=== PATIENT | female | born 1975 | race Caucasian/White ===

== ENCOUNTER 2016-05-01 23:11 | Emergency (ER) | payer OTHER ==
[2016-05-01 23:28] VITALS: RESP 16
[2016-05-01] MEDS ORDERED: DIPH,PERTUS(ACELL)TETVAC-LF 0.5 ML VIAL IM ONE (23:46)
--- NOTE | 2016-05-01 23:49 | ED ---
Wound/Laceration HPI - General Chief Complaint: Wound/Laceration Stated Complaint: left hand laceration Time Seen by Provider: 05/01/16 23:33 Source: patient, RN notes reviewed Mode of arrival: ambulatory Limitations: no limitations - History of Present Illness Initial Comments: Patient is a 41-year-old female with a chief complaint of laceration to her left thumb. Patient reports that she cut with the parent a fluttering to repair her eye pad. Patient reports that the knife Slipped and cut her thumb. She denies any other injury. She states she has full range of motion of the thumb. She denies knowing the status of her tetanus vaccination. She would like to have a updated today. Patient reports no other injuries. She denies any peripheral paresthesias. - Related Data Home Medications Medication Instructions Recorded Confirmed Albuterol Sulfate [Proair Hfa] 1 - 2 puff INHALATION RT-Q6H PRN 02/12/16 DULoxetine HCL [Cymbalta] 60 mg PO DAILY 02/12/16 05/01/16 Allergies Allergy/AdvReac Type Severity Reaction Status Date / Time No Known Allergies Allergy Verified 05/01/16 23:28 Review of Systems ROS Statement: Those systems with pertinent positive or pertinent negative responses have been documented in the HPI. ROS Other: All systems not noted in ROS Statement are negative. Past Medical History Additional Past Medical History / Comment(s): chronic back pain History of Any Multi-Drug Resistant Organisms: None Reported Past Surgical History: No Surgical Hx Reported Past Psychological History: Anxiety, Depression Smoking Status: Current every day smoker Past Alcohol Use History: Occasional Past Drug Use History: None Reported General Exam - General Exam Comments Initial Comments: WEll appearing 41 year old female, no distress. Limitations: no limitations General appearance: alert, in no apparent distress Head exam: Present: atraumatic, normocephalic, normal inspection Eye exam: Present: normal appearance, PERRL, EOMI. Absent: scleral icterus, conjunctival injection, periorbital swelling ENT exam: Present: normal exam, mucous membranes moist Neck exam: Present: normal inspection. Absent: tenderness, meningismus, lymphadenopathy Respiratory exam: Present: normal lung sounds bilaterally. Absent: respiratory distress, wheezes, rales, rhonchi, stridor Cardiovascular Exam: Present: regular rate, normal rhythm, normal heart sounds. Absent: systolic murmur, diastolic murmur, rubs, gallop, clicks GI/Abdominal exam: Present: soft, normal bowel sounds. Absent: distended, tenderness, guarding, rebound, rigid Extremities exam: Present: normal inspection, full ROM, normal capillary refill. Absent: tenderness, pedal edema, joint swelling, calf tenderness Left Forearm Wrist exam: Present: normal inspection, full ROM Hand Wrist exam: Present: full ROM. Absent: normal inspection (Patient has a 3 cm laceration over the left thumb.) Neurosensory exam: Present: radial nerve intact, ulnar nerve intact, median nerve intact Vascular: Present: normal capillary refill Back exam: Present: normal inspection Neurological exam: Present: alert, oriented X3, CN II-XII intact Psychiatric exam: Present: normal affect, normal mood Skin exam: Present: warm, dry, intact, normal color. Absent: rash Course Vital Signs 05/01/16 05/02/16 23:26 00:44 Temperature 98.2 F 98 F Pulse Rate 81 77 Respiratory 16 16 Rate Blood Pressure 114/61 129/77 O2 Sat by Pulse 100 98 Oximetry Procedures - Laceration Laceration #1 Site: hand (left thumb) Size (cm): 3 Description: linear Depth: simple, single layer Sedation/Analgesia: fentanyl Anesthesia Technique: local infiltration Amount (mls): 3 Pre-repair: wound explored, irrigated extensively Type of Sutures: nylon Size of Sutures: 6-0 Number of Sutures: 4 Technique: simple, interrupted Patient Tolerated Procedure: well, no complications Medical Decision Making - Medical Decision Making Patient is a 41 year old with laceration over left thumb after cutting it on a knife. She was given Tetanus vaccination. Patient has full range of motion of the thumb and no tendon involvement. Patient wound was cleaned and closed with 4 sutures. Wound was well approximated and a sterile dressing applied. PAtient understands treatment plan and return paramteres. Disposition Clinical Impression: Thumb laceration Disposition: HOME SELF-CARE Condition: Good Instructions: Care For Your Stitches (ED), Laceration (ED) Additional Instructions: Please return to the emergency room in 8-10 days to have sutures removed. Please leave wound covered for the first 24-48 hours and then leave open to air after that time. Please use clean soap and water to clean the suture area to prevent scabbing over the top of your sutures. Please watch for any signs of infection which may include but not limited to increased pain, swelling, redness , fever or chills. Please return to the emergency room if any signs of infection do occur. Please return to the emergency room for any other concerns or complications. Referrals: Peewee Stockton MD [Primary Care Provider] - 1-2 days Time of Disposition: 00:25
[2016-05-02 00:45] VITALS: BP 129/77; PULSE 77; TEMP 98
== END 2016-05-02 00:45 | disposition home or self-care (01) ==
LOC: EC 23:11
DX: S61.012A Laceration without foreign body of left thumb without damage to nail, initial encounter (principal); F41.9 Anxiety disorder, unspecified; F32.9 Major depressive disorder, single episode, unspecified; F17.200 Nicotine dependence, unspecified, uncomplicated; Z79.899 Other long term (current) drug therapy; W26.0XXA Contact with knife, initial encounter
CPT/HCPCS: 12002; 90471; 90715; 99282

== ENCOUNTER 2016-08-27 10:56 | Emergency (ER) | payer OTHER ==
[2016-08-27 11:07] VITALS: TEMP 99.2
[2016-08-27] MEDS ORDERED: SODIUM CHLORIDE 0.9% 1,000 ML IV STA (11:28)
--- NOTE | 2016-08-27 11:43 | ED ---
General Adult HPI - General Chief complaint: OB/Uterine Contractions Stated complaint: female gu, ellyn miscarrage Time Seen by Provider: 08/27/16 11:24 Source: patient, RN notes reviewed Mode of arrival: ambulatory Limitations: no limitations - History of Present Illness Initial comments: Patient 41-year-old female who presents emergency room today with a chief complaint of possible miscarriage. Patient is G5, P2 with 2 previous miscarriages. She does admit that she believes she is approximately 5 weeks by last menstrual cycle. She states she had a positive test at home but has not seen an OB at this time in this . Patient does admit to increased bleeding that started this morning proxy 6 AM. She states it 's a bright red color. She denies any other complaints or symptoms. Admits some lower abdominal cramping. Currently rates it a 4/10. Denies any dizziness or lightheadedness. Patient denies any recent fever, chills, shortness of breath, chest pain, back pain, nausea or vomiting, numbness or tingling, dysuria or hematuria, constipation or diarrhea, headaches or visual changes, or any other complaints. - Related Data Home Medications Medication Instructions Recorded Confirmed DULoxetine HCL [Cymbalta] 60 mg PO HS 02/12/16 08/27/16 Sba-Grag-Uskzs Acid 1 cap PO DAILY 08/27/16 08/27/16 [-U Capsule (formulary)] Allergies Allergy/AdvReac Type Severity Reaction Status Date / Time No Known Allergies Allergy Verified 08/27/16 11:07 Review of Systems ROS Statement: Those systems with pertinent positive or pertinent negative responses have been documented in the HPI. ROS Other: All systems not noted in ROS Statement are negative. Past Medical History Additional Past Medical History / Comment(s): chronic back pain History of Any Multi-Drug Resistant Organisms: None Reported Past Surgical History: No Surgical Hx Reported Past Psychological History: Anxiety, Depression Smoking Status: Current some day smoker Past Alcohol Use History: Occasional Past Drug Use History: None Reported General Exam - General Exam Comments Initial Comments: General: The patient is awake and alert, in no distress, and does not appear acutely ill. Eye: Pupils are equal, round and reactive to light, extra-ocular movements are intact. No nystagmus. There is normal conjunctiva bilaterally. No signs of icterus. Ears, nose, mouth and throat: There are moist mucous membranes and no oral lesions. Neck: The neck is supple, there is no tenderness or JVD. Cardiovascular: There is a regular rate and rhythm. No murmur, rub or gallop is appreciated. Respiratory: Lungs are clear to auscultation, respirations are non-labored, breath sounds are equal. No wheezes, stridor, rales, or rhonchi. Gastrointestinal: Soft, non-distended, non-tender abdomen without masses or organomegaly noted. There is no rebound or guarding present. No CVA tenderness. Bowel sounds are unremarkable. Musculoskeletal: Normal ROM, no tenderness. Strength 5/5. Sensation intact. Pulses equal bilaterally 2+. Neurological: A&O x 3. CN II-XII intact, There are no obvious motor or sensory deficits. Coordination appears grossly intact. Speech is normal. Skin: Skin is warm and dry and no rashes or lesions are noted. Psychiatric: Cooperative, appropriate mood & affect, normal judgment. Limitations: no limitations Course Vital Signs 08/27/16 08/27/16 08/27/16 11:04 12:39 13:32 Temperature 99.2 F Pulse Rate 97 76 65 Respiratory 20 18 18 Rate Blood Pressure 128/77 113/66 110/58 O2 Sat by Pulse 99 97 97 Oximetry Medical Decision Making - Medical Decision Making Patient reexamined at this time shows no signs of distress. Resting comfortably in stretcher. Abdomen soft nontender. Patient's labs been reviewed. Repeat potassium was normal range. Patient's beta hCG 36.4 today. Ultrasound revealing no evidence of IUP at this time. Limit miscarriage was discussed with the patient. Patient is advised follow-up with the RN ACUTE DIALYSIS over the next 2 days. Given a prescription for repeat beta hCG in 2 days. Advised return here to the emergency room if any symptoms increase or worsen or for any other concerns. - Lab Data Result diagrams: 08/27/16 11:56 08/27/16 13:18 Lab Results 08/27/16 08/27/16 08/27/16 Range/Units 11:56 11:56 11:56 WBC 9.6 (3.8-10.6) k/uL RBC 4.43 (3.80-5.40) m/uL Hgb 14.9 (11.4-16.0) gm/dL Hct 41.8 (34.0-46.0) % MCV 94.5 (80.0-100.0) fL MCH 33.6 (25.0-35.0) pg MCHC 35.5 (31.0-37.0) g/dL RDW 12.2 (11.5-15.5) % Plt Count 270 (150-450) k/uL Neutrophils % 71 % Lymphocytes % 19 % Monocytes % 4 % Eosinophils % 3 % Basophils % 1 % Neutrophils # 6.8 (1.3-7.7) k/uL Lymphocytes # 1.8 (1.0-4.8) k/uL Monocytes # 0.4 (0-1.0) k/uL Eosinophils # 0.3 (0-0.7) k/uL Basophils # 0.1 (0-0.2) k/uL Sodium 138 (137-145) mmol/L Potassium 5.8 H (3.5-5.1) mmol/L Chloride 107 (98-107) mmol/L Carbon Dioxide 20 L (22-30) mmol/L Anion Gap 11 mmol/L BUN 9 (7-17) mg/dL Creatinine 0.66 (0.52-1.04) mg/dL Est GFR (MDRD) Af Amer >60 (>60 ml/min/1.73 sqM) Est GFR (MDRD) Non-Af >60 (>60 ml/min/1.73 sqM) Glucose 89 (74-99) mg/dL Calcium 9.0 (8.4-10.2) mg/dL Total Bilirubin 1.2 (0.2-1.3) mg/dL AST 34 (14-36) U/L ALT 19 (9-52) U/L Alkaline Phosphatase 34 L (38-126) U/L Total Protein 7.4 (6.3-8.2) g/dL Albumin 4.4 (3.5-5.0) g/dL HCG, Quant 36.4 mIU/mL Urine Color Yellow Urine Appearance Cloudy H (Clear) Urine pH 8.0 (5.0-8.0) Ur Specific [place] 1.017 (1.001-1.035) Urine Protein Trace H (Negative) Urine Glucose (UA) Negative (Negative) Urine Ketones Negative (Negative) Urine Blood Moderate H (Negative) Urine Nitrite Negative (Negative) Urine Bilirubin Negative (Negative) Urine Urobilinogen <2.0 (<2.0) mg/dL Ur Leukocyte Esterase Moderate H (Negative) Urine RBC >182 H (0-5) /hpf Urine WBC 6 H (0-5) /hpf Ur Squamous Epith Cells 3 (0-4) /hpf Urine Bacteria Rare H (None) /hpf Urine Mucus Rare H (None) /hpf Urine Sperm Rare (None) /hpf 08/27/16 Range/Units 13:18 WBC (3.8-10.6) k/uL RBC (3.80-5.40) m/uL Hgb (11.4-16.0) gm/dL Hct (34.0-46.0) % MCV (80.0-100.0) fL MCH (25.0-35.0) pg MCHC (31.0-37.0) g/dL RDW (11.5-15.5) % Plt Count (150-450) k/uL Neutrophils % % Lymphocytes % % Monocytes % % Eosinophils % % Basophils % % Neutrophils # (1.3-7.7) k/uL Lymphocytes # (1.0-4.8) k/uL Monocytes # (0-1.0) k/uL Eosinophils # (0-0.7) k/uL Basophils # (0-0.2) k/uL Sodium (137-145) mmol/L Potassium 4.1 (3.5-5.1) mmol/L Chloride (98-107) mmol/L Carbon Dioxide (22-30) mmol/L Anion Gap mmol/L BUN (7-17) mg/dL Creatinine (0.52-1.04) mg/dL Est GFR (MDRD) Af Amer (>60 ml/min/1.73 sqM) Est GFR (MDRD) Non-Af (>60 ml/min/1.73 sqM) Glucose (74-99) mg/dL Calcium (8.4-10.2) mg/dL Total Bilirubin (0.2-1.3) mg/dL AST (14-36) U/L ALT (9-52) U/L Alkaline Phosphatase (38-126) U/L Total Protein (6.3-8.2) g/dL Albumin (3.5-5.0) g/dL HCG, Quant mIU/mL Urine Color Urine Appearance (Clear) Urine pH (5.0-8.0) Ur Specific [place] (1.001-1.035) Urine Protein (Negative) Urine Glucose (UA) (Negative) Urine Ketones (Negative) Urine Blood (Negative) Urine Nitrite (Negative) Urine Bilirubin (Negative) Urine Urobilinogen (<2.0) mg/dL Ur Leukocyte Esterase (Negative) Urine RBC (0-5) /hpf Urine WBC (0-5) /hpf Ur Squamous Epith Cells (0-4) /hpf Urine Bacteria (None) /hpf Urine Mucus (None) /hpf Urine Sperm (None) /hpf Disposition Clinical Impression: Threatened Disposition: HOME SELF-CARE Condition: Stable Instructions: Threatened Miscarriage (ED) Additional Instructions: Please follow-up with RN ACUTE DIALYSIS / family doctor in the next 2 days of symptoms have not improved. Please return to emergency room if the symptoms increase or worsen or for any other concerns. Referrals: Peewee Stockton MD [Primary Care Provider] - 1-2 days Time of Disposition: 14:47
[2016-08-27 12:07] LABS: Basophils # (A) 0.1 k/uL (0-0.2); Basophils % (A) 1 %; CH 32.4; CHCM 34.4; Eosinophils # (A) 0.3 k/uL (0-0.7); Eosinophils % (A) 3 %; HCT 41.8 % (34.0-46.0); HDW 2.32; HGB 14.9 gm/dL (11.4-16.0); Luc # (Auto) 0.15; Luc % (Auto) 2; Lymphocytes # (A) 1.8 k/uL (1.0-4.8); Lymphocytes % (A) 19 %; MCH 33.6 pg (25.0-35.0); MCHC 35.5 g/dL (31.0-37.0); MCV 94.5 fL (80.0-100.0); Mean Platelet Volume 6.8; Monocytes # (A) 0.4 k/uL (0-1.0); Monocytes % (A) 4 %; Neutrophils # (A) 6.8 k/uL (1.3-7.7); Neutrophils % (A) 71 %; RBC 4.43 m/uL (3.80-5.40); RDW 12.2 % (11.5-15.5); WBC 9.6 k/uL (3.8-10.6); WBC (Perox) 9.67
[2016-08-27 12:15] LABS: ALT 19 U/L (9-52); AST 34 U/L (14-36); Alkaline Phosphatase 34 U/L (38-126); Anion Gap 11 mmol/L; Blood Urea Nitrogen 9 mg/dL (7-17); Carbon Dioxide 20 mmol/L (22-30); Chloride 107 mmol/L (98-107); Glucose 89 mg/dL (74-99); Non-African American GFR(MDRD) >60 (>60 ml/min/1.73 sqM); Sodium 138 mmol/L (137-145); Total Bilirubin 1.2 mg/dL (0.2-1.3); Total Protein 7.4 g/dL (6.3-8.2)
[2016-08-27 12:16] LABS: Potassium 5.8 mmol/L (3.5-5.1)
[2016-08-27 12:18] LABS: Appearance,Urine Cloudy (Clear); Bacteria,Urine Rare /hpf; Bilirubin,Urine Negative (Negative); Glucose,Urine (UA) Negative (Negative); Ketones,Urine Negative (Negative); Leukocyte Esterase,Urine Moderate (Negative); Mucus,Urine Rare /hpf; Nitrite,Urine Negative (Negative); Particle Count 3921; Protein,Urine Trace (Negative); RBC,Urine >182 /hpf (0-5); Specific Gravity,Urine 1.017 (1.001-1.035); Sperm,Urine Rare /hpf; Squamous Epithelial Cell,Urine 3 /hpf (0-4); UA Billing (MACRO vs. MICRO) MICRO; Urobilinogen,Urine <2.0 mg/dL (<2.0); WBC,Urine 6 /hpf (0-5)
[2016-08-27 12:32] LABS: HCG,Quantitative Serum 36.4 mIU/mL
[2016-08-27 12:40] VITALS: RESP 18
[2016-08-27 15:06] VITALS: BP 104/64; PULSE 76
--- NOTE | 2016-08-27 15:16 | US ---
EXAMINATION TYPE: US OB <= 14 wk fetus DATE OF EXAM: 08/27/2016 COMPARISON: NONE CLINICAL HISTORY: Pain. Bleeding x 1day. EXAM PERFORMED: Transabdominal (TA) EXAM MEASUREMENTS: GESTATIONAL AGE / DATING Dates by LMP: (5 weeks/1 days) EDC: 04/28/2017 Dates by First Scan: This is first scan Dates by Current Scan for: (5 weeks/1 days) EDC: 04/28/2017 MATERNAL ANATOMY Uterus: 8.3 x 5.3 x 5.6 cm Right Ovary: 3.0 x 1.8 x 2.1 cm Left Ovary: 3.1 x 2.7 x 1.9 cm Post CDS / Adnexa: wnl Presence of free fluid: wnl Presence of corpus luteal cyst: no Presence of subchorionic bleed: no GESTATION / SURVEY CRL: Not seen MSD: Not seen Yolk Sac Not seen Date of LMP: 07/22/2016 Beta HcG (if available): 36 IMPRESSION: No evidence of pole. Findings could be on the basis of a normal too early to detect. Ectopic or missed not excluded. Correlate clinically and with serial beta hCG and pelvic ultrasound as clinically warranted.
== END 2016-08-27 15:03 | disposition home or self-care (01) ==
LOC: EC 10:56
DX: O20.0 Threatened abortion (principal); O99.341 Other mental disorders complicating pregnancy, first trimester; F32.9 Major depressive disorder, single episode, unspecified; F41.9 Anxiety disorder, unspecified; O99.331 Smoking (tobacco) complicating pregnancy, first trimester; F17.200 Nicotine dependence, unspecified, uncomplicated; Z79.899 Other long term (current) drug therapy; Z3A.01 Less than 8 weeks gestation of pregnancy
CPT/HCPCS: 36415; 76801; 80053; 81001; 84132; 84702; 85025; 87086; 96360; 96361; 99284

== ENCOUNTER → 2016-11-19 | Outpatient (CLI) | payer OTHER ==
[2016-11-19 14:37] LABS: Basophils # (A) 0.1 k/uL (0-0.2); Basophils % (A) 1 %; CHCM 33.1; Eosinophils # (A) 0.3 k/uL (0-0.7); Eosinophils % (A) 3 %; HCT 48.2 % (34.0-46.0); HDW 2.19; HGB 16.1 gm/dL (11.4-16.0); Luc # (Auto) 0.16; Luc % (Auto) 1; Lymphocytes % (A) 25 %; MCH 33.4 pg (25.0-35.0); MCHC 33.4 g/dL (31.0-37.0); Mean Platelet Volume 7.3; Monocytes # (A) 0.5 k/uL (0-1.0); Monocytes % (A) 4 %; Neutrophils # (A) 7.7 k/uL (1.3-7.7); Neutrophils % (A) 65 %; RBC 4.81 m/uL (3.80-5.40); RDW 12.3 % (11.5-15.5); WBC 11.8 k/uL (3.8-10.6); WBC (Perox) 12.28
[2016-11-19 15:04] LABS: ALT 32 U/L (9-52); AST 22 U/L (14-36); Alkaline Phosphatase 47 U/L (38-126); Anion Gap 14 mmol/L; Blood Urea Nitrogen 12 mg/dL (7-17); Calcium 9.9 mg/dL (8.4-10.2); Carbon Dioxide 22 mmol/L (22-30); Chloride 105 mmol/L (98-107); Glucose 118 mg/dL (74-99); Non-African American GFR(MDRD) >60 (>60 ml/min/1.73 sqM); Sodium 141 mmol/L (137-145); Total Bilirubin 0.7 mg/dL (0.2-1.3); Total Protein 7.4 g/dL (6.3-8.2)
[2016-11-19 15:52] LABS: Vitamin B12 611 pg/mL (239-931)
== END | disposition home or self-care (01) ==
LOC: LABWHC1 13:51
PROVIDERS: ATTEND Nurse Practitioner Acute Care
DX: E55.9 Vitamin D deficiency, unspecified (principal); R41.3 Other amnesia; R53.83 Other fatigue
CPT/HCPCS: 36415; 80053; 82306; 82607; 84207; 84439; 84443; 84481; 85025

== ENCOUNTER 2017-02-26 16:28 | Emergency (ER) | payer OTHER ==
[2017-02-26 16:42] VITALS: RESP 18
[2017-02-26] MEDS ORDERED: ONDANSETRON 4 MG TAB PO STA (17:04)
[2017-02-26] MEDS ORDERED: diphenhydrAMINE 50 MG CAP PO STA (17:04)
[2017-02-26] MEDS ORDERED: FAMOTIDINE 20 MG TAB PO STA (17:04)
--- NOTE | 2017-02-26 17:11 | ED ---
General Adult HPI - General Chief complaint: Allergic Reaction Stated complaint: Poss allergic reaction, vomiting Time Seen by Provider: 02/26/17 16:56 Source: patient, RN notes reviewed, old records reviewed Mode of arrival: ambulatory Limitations: no limitations - History of Present Illness Initial comments: chief complaint and history of present illness a 41-year-old female who at approximately noon today took her sister's Augmentin. She did not know that it was a type of penicillin. Several hours later started to vomit. She has no other complaints other frequent vomiting. Mild upset stomach. No rash, no difficulty breathing, blood pressure normal. - Related Data Home Medications Medication Instructions Recorded Confirmed Gabapentin 800 mg PO TID 02/26/17 02/26/17 HYDROcodone/APAP 5-325MG [[place] 1 tab PO TID PRN 02/26/17 02/26/17 5-325] Previous Rx's Medication Instructions Recorded Azithromycin [Zithromax Z-pack] 250 mg PO DIRECTED #6 tab 02/26/17 Allergies Allergy/AdvReac Type Severity Reaction Status Date / Time Penicillins AdvReac Nausea & Verified 02/26/17 16:55 Vomiting & Diarrhea Review of Systems ROS Statement: Those systems with pertinent positive or pertinent negative responses have been documented in the HPI. review of systems. Patient denies any headache denies any shortness of breath. Complains of abdominal cramping in the epigastric region and nausea. She has vomited several times, no blood noted in the vomit. No diarrhea. No skin rashes. All systems are reviewed. Past medical processing significant for chronic back pain on pain medications which she did take today.Patient's surgeries are D &C. Family history no cancers. Patient has ALLERGIES to penicillin. She does smoke she was encouraged to stop denies alcohol use. ROS Other: All systems not noted in ROS Statement are negative. Past Medical History Additional Past Medical History / Comment(s): chronic back pain History of Any Multi-Drug Resistant Organisms: None Reported Past Surgical History: No Surgical Hx Reported Past Psychological History: Anxiety, Depression Smoking Status: Current every day smoker Past Alcohol Use History: Occasional Past Drug Use History: None Reported General Exam - General Exam Comments Initial Comments: General: The patient is awake and alert,complaining of adverse reaction toAugmentin, which she took from her sister. She states she has a bad tooth and has an appointment to follow-up with her dentist. Patient reports ALLERGIES to penicillin. Vital signs temperature 96.8 pulse 117 respiratory rate 18 pulse ox on percent room air blood pressure 118/70 Eye: Pupils are equal, pupils are small, patient did take her [place] prior to coming emergency room.round and reactive to light, extra-ocular movements are intact; there is normal conjunctiva bilaterally. No signs of icterus. Ears, nose, mouth and throat: There are moist mucous membranes and no oral lesions. Neck: The neck is supple, there is no tenderness . Cardiovascular: There is a regular rate and rhythm. No murmur, rub or gallop is appreciated. Respiratory: Lungs are clear to auscultation, respirations are non-labored, breath sounds are equal. No wheezes, stridor, rales, or rhonchi. Gastrointestinal: complaint of vomiting 7 times over the previous 5 hours. Complains of mild upset stomach. No blood in the vomit. Back: chronic back pain, sees a chronic pain management doctors on [place] daily. Musculoskeletal: no complaint of upper or lower extremity discomfort or pain. Neurological: no weakness, no neuro deficits. Skin: no hives, no skin rash. Limitations: no limitations Course Vital Signs 02/26/17 16:37 Temperature 96.8 F L Pulse Rate 117 H Respiratory 18 Rate Blood Pressure 118/70 O2 Sat by Pulse 100 Oximetry Medical Decision Making - Medical Decision Making Vital signs remained stable. Patient has had 2 loose stools while in emergency room. No nausea no vomiting. She was given by mouth Benadryl, Pepcid. At home the patient be advised to continue with Pepto-Bismol as needed for loose stool. Advised taking azithromycin for her toothache. Follow-up with family physician. Take Benadryl 50 mg twice a day. Disposition Clinical Impression: Allergic reaction caused by a drug, Adverse reaction to drug Disposition: HOME SELF-CARE Condition: Fair Instructions: Antibiotic Medication Allergy (ED) Additional Instructions: Use a Zithromax and for your toothache. Follow-up with the dentist. Take Benadryl 50 mg twice a day for the next 2 days and Pepcid 20 mg daily for the next 2 days Prescriptions: Azithromycin [Zithromax Z-pack] 250 mg PO DIRECTED #6 tab Referrals: Peewee Stockton MD [Primary Care Provider] - 1-2 days Time of Disposition: 18:25
[2017-02-26] MEDS ORDERED: BISMUTH SUBSALICYLATE 4,192 MG/240 ML BOTTLE PO PRN (18:20)
[2017-02-26 18:48] VITALS: BP 122/59; PULSE 101; TEMP 98
== END 2017-02-26 18:56 | disposition home or self-care (01) ==
LOC: EC 16:28
DX: R11.10 Vomiting, unspecified (principal); T36.0X5A Adverse effect of penicillins, initial encounter; M54.9 Dorsalgia, unspecified; G89.29 Other chronic pain; F41.9 Anxiety disorder, unspecified; F17.200 Nicotine dependence, unspecified, uncomplicated; Z88.0 Allergy status to penicillin; Z79.899 Other long term (current) drug therapy
CPT/HCPCS: 99283

== ENCOUNTER → 2017-03-09 | Outpatient (CLI) | payer OTHER ==
--- NOTE | 2017-03-09 23:17 | MR ---
EXAMINATION TYPE: MR cervical spine wo con DATE OF EXAM: 03/09/2017 COMPARISON: 05/28/2015 HISTORY: White matter changes; Prior on pacs 2017 TECHNIQUE: Multiplanar, multisequence images of the cervical spine were acquired. The cervical vertebra have normal alignment. Disc spaces are fairly normal. Cervical spinal cord has normal size. I see no evidence of edema. Brainstem is intact. Posterior elements are intact. There is no spinal stenosis. IMPRESSION: Negative MR scan of the cervical spine. No evidence of demyelinating disease. No cervical disc hernia tion or spinal stenosis. No adverse change compared to old exam.
== END | disposition home or self-care (01) ==
LOC: RADMRIMAIN 21:11
PROVIDERS: ATTEND Nurse Practitioner Acute Care
DX: M54.2 Cervicalgia (principal)
CPT/HCPCS: 72141

== ENCOUNTER → 2017-06-14 | Outpatient (CLI) | payer OTHER ==
--- NOTE | 2017-06-22 17:00 | HM ---
HOLTER MONITOR REPORT DATE OF STUDY: 06/14/2017 INDICATION FOR STUDY: Palpitations. The patient was monitored for 24 hours. The baseline rhythm appeared to be sinus mechanism with a minimum heart rate of 54 beats per minute, maximum heart rate of 138 beats per minute, and average heart rate of 79 beats per minute. Ventricular ectopic events were rare. Supraventricular ectopic events were rare as well. No evidence of any sinus pause or sinus arrest. CONCLUSION: 1. Sinus rhythm as the baseline mechanism. 2. Rare ventricular ectopic events. 3. Rare supraventricular ectopic events. 4. There is no evidence of sinus pause or sinus arrest. 5. The patient reported no symptoms. MMODL / IJN: [id number] /
== END | disposition home or self-care (01) ==
LOC: RADECHMAIN 12:24
PROVIDERS: ATTEND Internal Medicine
DX: I49.9 Cardiac arrhythmia, unspecified (principal)
CPT/HCPCS: 93225; 93226

== ENCOUNTER 2017-09-24 19:32 | Emergency (ER) | payer OTHER ==
[2017-09-24 19:46] VITALS: TEMP 98.2
[2017-09-24] MEDS ORDERED: PROPARACAINE 0.5% OPHTH DROPS 15 ML BTL RIGHT EYE STA (21:15)
--- NOTE | 2017-09-24 21:31 | ED ---
ENT HPI - General Chief complaint: ENT Stated complaint: Chemical in eye Time Seen by Provider: 09/24/17 21:15 Source: patient, RN notes reviewed Mode of arrival: ambulatory Limitations: no limitations - History of Present Illness Initial comments: This is a 42-year-old female who presents to the emergency department with chief complaint of chemical in her eye. Patient states that at approximately 5 PM this evening she was underneath her boat applying an epoxy gel coat. She states that the epoxy dripped and got into her eye. Patient states that she flushed out her eye with water. She states that she has had excessive tearing and pain in the eye. She states that she has a little bit of blurred vision but no vision loss. She denies contact lens use. Denies recent fevers or chills, chest pain or shortness of breath, abdominal pain, nausea or vomiting, headache or dizziness. - Related Data Home Medications Medication Instructions Recorded Confirmed Gabapentin 800 mg PO TID 02/26/17 02/26/17 HYDROcodone/APAP 5-325MG [[place] 1 tab PO TID PRN 02/26/17 02/26/17 5-325] Previous Rx's Medication Instructions Recorded Azithromycin [Zithromax Z-pack] 250 mg PO DIRECTED #6 tab 02/26/17 Allergies Allergy/AdvReac Type Severity Reaction Status Date / Time Penicillins AdvReac Nausea & Verified 09/24/17 19:46 Vomiting & Diarrhea Review of Systems ROS Statement: Those systems with pertinent positive or pertinent negative responses have been documented in the HPI. ROS Other: All systems not noted in ROS Statement are negative. Past Medical History Additional Past Medical History / Comment(s): chronic back pain History of Any Multi-Drug Resistant Organisms: None Reported Past Surgical History: No Surgical Hx Reported Past Psychological History: Anxiety, Depression Smoking Status: Current every day smoker Past Alcohol Use History: Occasional Past Drug Use History: None Reported General Exam - General Exam Comments Initial Comments: General: Awake and alert, well-developed; in no apparent distress. HEENT: Head atraumatic, normocephalic. Pupils are equal, round and reactive to light. Extraocular movements intact. Right conjunctiva is injected. Excessive tearing is noted. Patient has difficulty opening the eye due to pain. Uptake of fluorescein at inferior cornea and conjunctiva. Likely chemical brooks. No ulcers. Negative siedel's. Oropharynx moist without erythema or exudate. Neck: Supple. Normal ROM. Cardiovascular: Regular rate and rhythm. No murmurs, rubs or gallops. Chest symmetrical. Respiratory: Lungs clear to auscultation bilaterally. No wheezes, rales or rhonchi. Normal respiratory effort with no use of accessory muscles. Musculoskeletal: Normal ROM, no tenderness bilateral upper and lower extremities. Ambulating normally. Skin: [place], warm and dry without rashes or lesions. Neurological: Alert and oriented x3. CN II-XII grossly intact. Speech is fluent and answers are appropriate. No focal neuro deficits. Psychiatric: Normal mood and affect. No overt signs of depression or anxiety noted. Limitations: no limitations Course Vital Signs 09/24/17 19:42 Temperature 98.2 F Pulse Rate 114 H Respiratory 20 Rate Blood Pressure 132/80 O2 Sat by Pulse 98 Oximetry Medical Decision Making - Medical Decision Making This is a 42-year-old female who presents to the emergency department with chief complaint of chemical in the eye. Patient reports getting epoxy into her right eye approximately 5 PM this evening. She states she did flush the eye out. I did contact poison control who recommended flushing for 30 minutes and then staining the eye. Patient's eye was thoroughly flushed with normal saline. Right conjunctiva is injected. There is uptake of fluorescein at the inferior cornea and conjunctiva. Case was discussed with attending physician, Dr. Garcia also evaluated the patient. Recommended tobramycin ointment and ophthalmology consult. Dr. Garcia was in contact with Dr. Severino. He will see patient in the office on Tuesday. Recommended cool compresses. Return parameters were discussed. Vital signs are stable and patient is in no acute distress. She will be discharged home at this time. All questions were answered. Disposition Clinical Impression: Chemical burn of eye Disposition: HOME SELF-CARE Condition: Fair Instructions: Chemical Eye Brooks (ED), Tobramycin (Into the eye) Additional Instructions: Please apply a half centimeter ribbon of ointment to the affected eye every 4 hours until follow-up with Dr. Severino. Please follow up with Dr. Severino on Tuesday. Please follow up with primary care provider within 1-2 days. Return to emergency department if symptoms should worsen or any concerns arise. Is patient prescribed a controlled substance at d/c from ED?: No Referrals: Peewee Stockton MD [Primary Care Provider] - 1-2 days Jose M Severino MD [STAFF PHYSICIAN] - 1-2 days Time of Disposition: 23:40
[2017-09-24] MEDS ORDERED: TOBRAMYCIN 0.3% OPHTH OINT 3.5 GM TUBE RIGHT EYE STA (23:01)
[2017-09-24 23:50] VITALS: BP 127/80; PULSE 88; RESP 18
== END 2017-09-24 23:40 | disposition home or self-care (01) ==
LOC: EC 19:32
DX: T26.91XA Corrosion of right eye and adnexa, part unspecified, initial encounter (principal); F17.200 Nicotine dependence, unspecified, uncomplicated; Z79.899 Other long term (current) drug therapy; Z88.0 Allergy status to penicillin
CPT/HCPCS: 99283